=== PATIENT | male | born 1945 | race Caucasian/White ===

== ENCOUNTER 2022-05-27 18:53 | Emergency (ER) | payer OTHER ==
[2022-05-27 19:39] LABS: HEMOGLOBIN 13.9 gm/dl (14.0-17.5); RED BLOOD COUNT 4.38 M/UL (4.20-5.50); WHITE BLOOD COUNT 15.7 K/UL (4.5-11.0)
[2022-05-27] MEDS ORDERED: HYDROCODON-ACE1 EAC4 PO (21:27)
[2022-05-28] MEDS ORDERED: HYDROCODON-ACE1 EAC4 PO ×2 (14:34→14:38)
== END 2022-05-27 21:42 | disposition home or self-care (01) ==
LOC: ER1 18:53
PROVIDERS: Student in an Organized Health Care Education/Training Program
DX: S00.11XA Contusion of right eyelid and periocular area, initial encounter (principal); I51.9 Heart disease, unspecified; Z86.73 Personal history of transient ischemic attack (TIA), and cerebral infarction without residual deficits; V49.40XA Driver injured in collision with unspecified motor vehicles in traffic accident, initial encounter; Y92.410 Unspecified street and highway as the place of occurrence of the external cause
CPT/HCPCS: 70450; 70486; 71260; 72125; 73030; 80053; 85025; 99284; Q9967